=== PATIENT | female | born 1940 | race Hispanic/Latino ===

== ENCOUNTER 2018-09-16 16:16 | Inpatient (IN) | payer MEDICARE ==
--- NOTE | 2018-09-16 16:44 | Cat Scan Report ---
FINAL REPORT EXAM: CT HEAD/BRAIN WO CON HISTORY: neuro deficits <6hrs or sx present upon awakening COMPARISON: None available. TECHNIQUE: Axial images obtained skull base through vertex. FINDINGS: No acute intracranial hemorrhage, midline shift or pathologic extra axial fluid collection. Mild paying teller lawanda small vessel ischemic disease. Ventricular system within normal limits. Otherwise, pierre-white dif ferentiation preserved. Chronic appearing lacunar infarcts bilateral basal ganglia and left caudate h ead. Calvarium grossly intact. No hyperdense MCA sign. No loss of the subinsular cortex. Moderate kelsie cified plaque along the carotid arteries. Ocular globes are grossly unremarkable. Mild mucosal thicke valentino of the left maxillary sinus. Mastoid air cells are clear. IMPRESSION: No grossly acute intracranial abnormality. Mild chronic small vessel ischemic disease. Chronic appear ing lacunar infarcts bilateral basal ganglia and left caudate head. No evidence of acute transcortica l infarct or intracranial hemorrhage by CT at this time. If clinical concern for acute intracranial p rocess remains, MRI would be suggested for further evaluation. [facility] ORS notified Dr. Hinson of results on September 16, 2018 at 1642 hours EST.
--- NOTE | 2018-09-16 16:54 | Emergency Department Report ---
HPI - General Chief Complaint: Neuro Symptoms/Deficit - HPI HPI: Room 3 The patient is 78-year-old female presenting with a chief complaint of slurred speech. Family states the patient last known well time was this morning at 08:30. The spouse states he went to a meeting to return home at 14:00 to find the patient had slurred speech. Patient reportedly fell 3 times today as well. Per the spouse the patient's speech has improved. Location: [employer] Duration: [See above] Quality: Slurred speech Severity: Moderate Modifying factors: [see above] Context: [see above] Mode of transportation: [not driving] ED Past Medical Hx - Past Medical History Previous Medical History?: No ED Review of Systems ROS: Stated complaint: POSSIBLE CVA Other details as noted in HPI Physical Exam - Physical Exam Physical Exam: NIHSS= [] LOC a. Alert= 0 Not alert but arousable to minor stimuli=1 Not alert requires repeated or strong stimuli to move= 2 Responds only reflex motor or unresponsive=3 b. asks month and age (+)answers both correctly= 0 answers one correctly= 1 answers neither correctly= 2 Best Gaze normal= 0 abnormal in one or both but forced deviation or total paresis absent= 1 forced deviation or total gaze paresis= 2 Visual no visual loss= 0 partial hemianopia= 1 complete hemianopia= 2 bilateral hemianopia= 3 Facial Palsy normal= 0 (+)minor paralysis= 1 partial paralysis= 2 complete paralysis= 3 Motor Arm no drift= 0 (+)drift before 10 secs but doesnt hit bed= 1 some effort against gravity= 2 no effort against gravity= 3 no movement= 4 Motor leg no drift= 0 (+)drift before 5 secs but doesnt hit bed= 1 drifts to bed before 5 secs= 2 no effort against gravity= 3 no movement= 4 Limb ataxia absent=0 present in one limb= 1 present in two limbs= 2 Sensory normal= 0 mild sensory loss= 1 severe (unaware of being touched)= 2 Best language mild/some loss of fluency= 1 severe= 2 mute= 3 Dysarthria normal= 0 slurs some words= 1 severe/unintelligible= 2 Extinction and Inattention no abnormality= 0 visual, tactile, auditory or personal inattention= 1 profound (doesnt recognize own hand or orients to only one side= 2 ED Course - Consultations Consultation #1: 09/16/18 16:50 Tele-neurology paged 09/16/18 17:[address] Juarez- recommends changing aspirin to Plavix 75 daily, starting Lipitor 40 mg daily and typical stroke workup. ED Medical Decision Making - Lab Data Result diagrams: 09/16/18 17:07 09/16/18 17:07 Laboratory Tests 09/16/18 09/16/18 09/16/18 17:07 17:07 17:07 WBC 7.9 RBC 4.99 Hgb 15.0 H Hct 44.8 H MCV 90 MCH 30 MCHC 34 RDW 13.9 Plt Count 221 Lymph % (Auto) 12.6 L [place] % (Auto) 5.5 Eos % (Auto) 1.8 Baso % (Auto) 0.9 Lymph # 1.0 L [place] # 0.4 Eos # 0.1 Baso # 0.1 Seg Neutrophils % 79.2 H Seg Neutrophils # 6.3 PT 12.9 INR 0.93 Thrombin Time Sodium 141 Potassium 4.1 Chloride 102.4 Carbon Dioxide 27 Anion Gap 16 BUN 13 Creatinine 0.6 L Estimated GFR > 60 BUN/Creatinine Ratio 22 Glucose 112 H POC Glucose Calcium 9.3 Troponin T < 0.010 09/16/18 09/16/18 17:07 17:23 WBC RBC Hgb Hct MCV MCH MCHC RDW Plt Count Lymph % (Auto) [place] % (Auto) Eos % (Auto) Baso % (Auto) Lymph # [place] # Eos # Baso # Seg Neutrophils % Seg Neutrophils # PT INR Thrombin Time 16.3 Sodium Potassium Chloride Carbon Dioxide Anion Gap BUN Creatinine Estimated GFR BUN/Creatinine Ratio Glucose POC Glucose 101 Calcium Troponin T - EKG Data -: EKG Interpreted by Me EKG shows normal: sinus rhythm Rate: normal - EKG Data When compared to previous EKG there are: previous EKG unavailable Interpretation: other (no ischemic changes seen) - Radiology Data Radiology results: report reviewed (CT head), image reviewed (CT head) [facility] [address] [place] [address] Cat Scan Report Signed Patient: IHSAN YANG MR#: [id number] : 1940 Acct:[id number] Age/Sex: 78 / F ADM Date: 09/16/18 Loc: ED Attending Dr: Ordering Physician: REBECCA ESPARZA MD Date of Service: 09/16/18 Procedure(s): CT head/brain wo con Accession Number(s): [id number] cc: REBECCA ESPARZA MD FINAL REPORT EXAM: CT HEAD/BRAIN WO CON HISTORY: neuro deficits lt; 6hrs or sx present upon awakening COMPARISON: None available. TECHNIQUE: Axial images obtained skull base through vertex. FINDINGS: No acute intracranial hemorrhage, midline shift or pathologic extra axial fluid collection. Mild chronic small vessel ischemic disease. Ventricular system within normal limits. Otherwise, pierre-white differentiation preserved. Chronic appearing lacunar infarcts bilateral basal ganglia and left caudate head. Calvarium grossly intact. No hyperdense MCA sign. No loss of the subinsular cortex. Moderate calcified plaque along the carotid arteries. Ocular globes are grossly unremarkable. Mild mucosal thickening of the left maxillary sinus. Mastoid air cells are clear. IMPRESSION: No grossly acute intracranial abnormality. Mild chronic small vessel ischemic disease. Chronic appearing lacunar infarcts bilateral basal ganglia and left caudate head. No evidence of acute transcortical infarct or intracranial hemorrhage by CT at this time. If clinical concern for acute intracranial process remains, MRI would be suggested for further evaluation. [facility] ORS notified Dr. Esparza of results on September 16, 2018 at 1642 hours EST. Transcribed By: LMA Dictated By: YINKA NORMAN MD Electronically Authenticated By: YINKA NORMAN MD Signed Date/Time: 09/16/181643 DD/ 44 TD/TT: 09/16/181644 - Differential Diagnosis CVA Critical care attestation.: If time is entered above; I have spent that time in minutes in the direct care of this critically ill patient, excluding procedure time. ED Disposition Clinical Impression: CVA (cerebral vascular accident) Disposition: DC-09 OP ADMIT IP TO THIS HOSP Is pt being admited?: Yes Does the pt Need Aspirin: Yes Condition: Fair Time of Disposition: 18:07 (hospitalist paged (Dr Ray))
[2018-09-16] MEDS ORDERED: PLAVIX PO ONE (17:22)
[2018-09-16 17:32] LABS: Basophils # (Auto) 0.1 K/mm3 (0.0-0.1); Basophils % (Auto) 0.9 % (0.0-1.8); Eosinophils # (Auto) 0.1 K/mm3 (0.0-0.4); Eosinophils % (Auto) 1.8 % (0.0-4.3); Hematocrit 44.8 % (30.3-42.9); Lymphocytes % (Auto) 12.6 % (13.4-35.0); Mean Corpuscular HGB Conc 34 % (30-34); Mean Corpuscular Volume 90 fl (79-97); Monocytes # (Auto) 0.4 K/mm3 (0.0-0.8); Monocytes % (Auto) 5.5 % (0.0-7.3); Platelet Count 221 K/mm3 (140-440); Red Blood Count 4.99 M/mm3 (3.65-5.03); Red Cell Distribution Width 13.9 % (13.2-15.2)
[2018-09-16 17:48] LABS: INR 0.93 (0.87-1.13)
[2018-09-16 17:50] LABS: BUN/Creatinine Ratio 22; Blood Urea Nitrogen 13 mg/dL (7-17); Calcium 9.3 mg/dL (8.4-10.2); Hemolysis Index 4
[2018-09-16] MEDS ORDERED: ASPIRIN PO ONE (18:08)
[2018-09-16 18:21] LABS: Partial Thromboplastin Time 40.3 Sec. (24.2-36.6)
[2018-09-16] MEDS ORDERED: ZOFRAN IV PRN (18:58)
[2018-09-16] MEDS ORDERED: SODIUM CHLORIDE FLUSH SYRINGE 10 ML IV PRN ×2 (18:58→19:02)
[2018-09-16] MEDS: TYLENOL PO PRN (23:24)
[2018-09-17] MEDS: TYLENOL PO PRN ×2 (04:48→17:39)
--- NOTE | 2018-09-17 05:04 | History and Physical Report ---
History of Present Illness Date of examination: 09/16/18 Date of admission: 09/16/18 18:58 Chief complaint: Slurred speech and L sided weakness since AM History of present illness: 78-year-old female presenting with a chief complaint of slurred speech. Family states the patient last known well time was this morning at 08:30. The spouse states he went to a meeting to return home at 14:00 to find the patient had slurred speech and left sided weakness.Tried to walk and fell down 3 times.Slurred speech has improved to a large extent Past History Past Medical History: No medical history Past Surgical History: No surgical history Social history: lives with family, full code Family history: hypertension Medications and Allergies Allergies Allergy/AdvReac Type Severity Reaction Status Date / Time No Known Allergies Allergy Unverified 09/16/18 16:26 Active Meds: Active Medications Acetaminophen (Tylenol) 650 mg PO Q4H PRN PRN Reason: Pain MILD(1-3)/Fever >100.5/AUGUST Last Admin: 09/17/18 04:48 Dose: 650 mg Documented by: Enoxaparin Sodium (Lovenox) 40 mg SUB-Q QDAY@1000 RADHA Hydromorphone HCl (Dilaudid) 0.5 mg IV Q3H PRN PRN Reason: Pain , Severe (7-10) Ondansetron HCl (Zofran) 4 mg IV Q8H PRN PRN Reason: Nausea And Vomiting Sodium Chloride (Sodium Chloride Flush Syringe 10 Ml) 10 ml IV BID RADHA Sodium Chloride (Sodium Chloride Flush Syringe 10 Ml) 10 ml IV PRN PRN PRN Reason: LINE FLUSH Sodium Chloride (Sodium Chloride Flush Syringe 10 Ml) 10 ml IV PRN PRN PRN Reason: LINE FLUSH Review of Systems All systems: negative Neurological: paralysis (L side), change in speech Exam - Constitutional Vitals: Temp Pulse Resp BP Pulse Ox 97.7 F 76 18 133/46 95 09/17/18 04:36 09/17/18 04:36 09/17/18 04:36 09/17/18 04:36 09/17/18 04:36 General appearance: Present: no acute distress, well-nourished - EENT Eyes: Present: PERRL ENT: hearing intact, clear oral mucosa - Neck Neck: Present: supple, normal ROM - Respiratory Respiratory effort: normal Respiratory: bilateral: CTA - Cardiovascular Heart rate: 65 Rhythm: regular Heart Sounds: Present: S1 & S2. Absent: rub, click - Extremities Extremities: pulses symmetrical, No edema Peripheral Pulses: within normal limits - Abdominal General gastrointestinal: Present: soft, non-tender, non-distended, normal bowel sounds Female genitourinary: Present: normal - Rectal Rectal Exam: deferred - Integumentary Integumentary: Present: clear, warm, dry - Musculoskeletal Musculoskeletal: left sided weakness - Psychiatric Psychiatric: appropriate mood/affect, intact judgment & insight - Neurologic Neurologic: CNII-XII intact (L Facial nerve palsy ), focal deficits (LUE and LLE weakness.3/5 power in both upper and lower extremities Reflexes brisk) - Allied Health Allied health notes reviewed: nursing, case management Results - Labs CBC & Chem 7: 09/16/18 17:07 09/16/18 17:07 Labs: Laboratory Last Values WBC 7.9 K/mm3 (4.5-11.0) 09/16/18 17:07 RBC 4.99 M/mm3 (3.65-5.03) 09/16/18 17:07 Hgb 15.0 gm/dl (10.1-14.3) H 09/16/18 17:07 Hct 44.8 % (30.3-42.9) H 09/16/18 17:07 MCV 90 fl (79-97) 09/16/18 17:07 MCH 30 pg (28-32) 09/16/18 17:07 MCHC 34 % (30-34) 09/16/18 17:07 RDW 13.9 % (13.2-15.2) 09/16/18 17:07 Plt Count 221 K/mm3 (140-440) 09/16/18 17:07 Lymph % (Auto) 12.6 % (13.4-35.0) L 09/16/18 17:07 [place] % (Auto) 5.5 % (0.0-7.3) 09/16/18 17:07 Eos % (Auto) 1.8 % (0.0-4.3) 09/16/18 17:07 Baso % (Auto) 0.9 % (0.0-1.8) 09/16/18 17:07 Lymph # 1.0 K/mm3 (1.2-5.4) L 09/16/18 17:07 [place] # 0.4 K/mm3 (0.0-0.8) 09/16/18 17:07 Eos # 0.1 K/mm3 (0.0-0.4) 09/16/18 17:07 Baso # 0.1 K/mm3 (0.0-0.1) 09/16/18 17:07 Seg Neutrophils % 79.2 % (40.0-70.0) H 09/16/18 17:07 Seg Neutrophils # 6.3 K/mm3 (1.8-7.7) 09/16/18 17:07 PT 12.9 Sec. (12.2-14.9) 09/16/18 17:07 INR 0.93 (0.87-1.13) 09/16/18 17:07 APTT 40.3 Sec. (24.2-36.6) H 09/16/18 17:07 Thrombin Time 16.3 Sec. (15.1-19.6) 09/16/18 17:07 Sodium 141 mmol/L (137-145) 09/16/18 17:07 Potassium 4.1 mmol/L (3.6-5.0) 09/16/18 17:07 Chloride 102.4 mmol/L (98-107) 09/16/18 17:07 Carbon Dioxide 27 mmol/L (22-30) 09/16/18 17:07 Anion Gap 16 mmol/L 09/16/18 17:07 BUN 13 mg/dL (7-17) 09/16/18 17:07 Creatinine 0.6 mg/dL (0.7-1.2) L 09/16/18 17:07 Estimated GFR > 60 ml/min 09/16/18 17:07 BUN/Creatinine Ratio 22 % 09/16/18 17:07 Glucose 112 mg/dL (65-100) H 09/16/18 17:07 POC Glucose 101 (70-105) 09/16/18 17:23 Hemoglobin A1c 5.3 % (4-6) 09/16/18 19:18 Calcium 9.3 mg/dL (8.4-10.2) 09/16/18 17:07 Troponin T < 0.010 ng/mL (0.00-0.029) 09/16/18 17:07 Short CBC 09/16/18 Range/Units 17:07 WBC 7.9 (4.5-11.0) K/mm3 Hgb 15.0 H (10.1-14.3) gm/dl Hct 44.8 H (30.3-42.9) % Plt Count 221 (140-440) K/mm3 BMP 09/16/18 17:07 Sodium 141 Potassium 4.1 Chloride 102.4 Carbon Dioxide 27 BUN 13 Creatinine 0.6 L Glucose 112 H Calcium 9.3 Cardiac Enzymes 09/16/18 Range/Units 17:07 Troponin T < 0.010 (0.00-0.029) ng/mL - Imaging and Cardiology EKG: report reviewed (NSR 65/min) Imaging and Cardiology: CT Head IMPRESSION: No grossly acute intracranial abnormality. Mild chronic small vessel ischemic disease. Chronic appearing lacunar infarcts bilateral basal ganglia and left caudate head. No evidence of acute transcortical infarct or intracranial hemorrhage by CT at this time. If clinical concern for acute intracranial process remains, MRI would be suggested for further evaluation. [facility] ORS notified Dr. Hinson of results on September 16, 2018 at 1642 hours EST. Assessment and Plan Advance Directives: Yes (Full code) VTE prophylaxis?: Chemical Plan of care discussed with patient/family: Yes - Patient Problems (1) Acute CVA (cerebrovascular accident) Current Visit: Yes Status: Acute Plan to address problem: Outside the window period for TPA Stroke protocol MRI/MRA/CDS/Echo ordered Neuro consult ordered (2) DVT prophylaxis Current Visit: Yes Status: Acute Plan to address problem: On Lovenox and GI prophyulaxis
[2018-09-17 07:50] LABS: Basophils % (Auto) 0.3 % (0.0-1.8); Eosinophils # (Auto) 0.1 K/mm3 (0.0-0.4); Eosinophils % (Auto) 2.1 % (0.0-4.3); Hematocrit 43.4 % (30.3-42.9); Hemoglobin 14.6 gm/dl (10.1-14.3); Lymphocytes # (Auto) 1.3 K/mm3 (1.2-5.4); Lymphocytes % (Auto) 19.3 % (13.4-35.0); Mean Corpuscular HGB Conc 34 % (30-34); Mean Corpuscular Volume 90 fl (79-97); Monocytes # (Auto) 0.5 K/mm3 (0.0-0.8); Monocytes % (Auto) 8.5 % (0.0-7.3); Red Blood Count 4.85 M/mm3 (3.65-5.03); Red Cell Distribution Width 13.9 % (13.2-15.2)
[2018-09-17 07:59] LABS: Alanine Aminotransferase 12 units/L (7-56); Albumin 3.7 g/dL (3.9-5); BUN/Creatinine Ratio 22; Blood Urea Nitrogen 13 mg/dL (7-17); Calcium 8.8 mg/dL (8.4-10.2); Hemolysis Index 8; LDL Cholesterol,Direct 99 mg/dL (50-130)
[2018-09-17 08:02] LABS: Platelet Count 212 K/mm3 (140-440)
--- NOTE | 2018-09-17 08:12 | Progress Note ---
Assessment and Plan Assessment and plan: 78-year-old female patient was admitted through emergency room with slurred speech and left-sided weakness . The patient is not a candidate for TPA, neuro workup is in progress, CT head without contrast no acute abnormalities Chronic changes noted --Acute CVA/TIA; Not a candidate for TPA, antiplatelets and statins Physical therapy, occupational therapy, rehabilitation follow neuro workup MRI/MRA , carotid Doppler , echocardiogram and neurology evaluation if needed --Dyslipidemia; continue statin --Ongoing tobacco use smoking cessation counseling, nicotine patch as needed. --DVT prophylaxis; Lovenox --DC planning. Case management --PTOT Closely monitor the patient and adjust the management as needed Plan of care is reviewed with the patient, her daughter and her nurse History Interval history: Patient seen and examined medical records reviewed Patient complains of generalized weakness More alert and awake Wants to go home, confused at times Vital signs noted Daughter at the bedside Hospitalist Physical - Constitutional Vitals: Temp Pulse Resp BP Pulse Ox 97.7 F 76 18 133/46 95 09/17/18 04:36 09/17/18 04:36 09/17/18 04:36 09/17/18 04:36 09/17/18 04:36 General appearance: Present: no acute distress, well-nourished, other (speech clear) - EENT Eyes: Present: PERRL, EOM intact - Neck Neck: Present: supple, normal ROM - Respiratory Respiratory effort: normal Respiratory: bilateral: diminished, negative: rales, rhonchi, wheezing - Cardiovascular Rhythm: regular Heart Sounds: Present: S1 & S2 - Extremities Extremities: no ischemia, No edema - Abdominal General gastrointestinal: soft, non-tender, non-distended, normal bowel sounds - Integumentary Integumentary: Present: clear, warm - Psychiatric Psychiatric: appropriate mood/affect, cooperative - Neurologic Neurologic: CNII-XII intact, moves all extremities, other ( speech clear) Results - Labs CBC & Chem 7: 09/17/18 07:07 09/17/18 07:07 Labs: Laboratory Last Values WBC 6.5 K/mm3 (4.5-11.0) 09/17/18 07:07 RBC 4.85 M/mm3 (3.65-5.03) 09/17/18 07:07 Hgb 14.6 gm/dl (10.1-14.3) H 09/17/18 07:07 Hct 43.4 % (30.3-42.9) H 09/17/18 07:07 MCV 90 fl (79-97) 09/17/18 07:07 MCH 30 pg (28-32) 09/17/18 07:07 MCHC 34 % (30-34) 09/17/18 07:07 RDW 13.9 % (13.2-15.2) 09/17/18 07:07 Plt Count 212 K/mm3 (140-440) 09/17/18 07:07 Lymph % (Auto) 19.3 % (13.4-35.0) 09/17/18 07:07 [place] % (Auto) 8.5 % (0.0-7.3) H 09/17/18 07:07 Eos % (Auto) 2.1 % (0.0-4.3) 09/17/18 07:07 Baso % (Auto) 0.3 % (0.0-1.8) 09/17/18 07:07 Lymph # 1.3 K/mm3 (1.2-5.4) 09/17/18 07:07 [place] # 0.5 K/mm3 (0.0-0.8) 09/17/18 07:07 Eos # 0.1 K/mm3 (0.0-0.4) 09/17/18 07:07 Baso # 0.0 K/mm3 (0.0-0.1) 09/17/18 07:07 Seg Neutrophils % 69.8 % (40.0-70.0) 09/17/18 07:07 Seg Neutrophils # 4.5 K/mm3 (1.8-7.7) 09/17/18 07:07 PT 12.9 Sec. (12.2-14.9) 09/16/18 17:07 INR 0.93 (0.87-1.13) 09/16/18 17:07 APTT 40.3 Sec. (24.2-36.6) H 09/16/18 17:07 Thrombin Time 16.3 Sec. (15.1-19.6) 09/16/18 17:07 Sodium 142 mmol/L (137-145) 09/17/18 07:07 Potassium 3.8 mmol/L (3.6-5.0) 09/17/18 07:07 Chloride 104.3 mmol/L (98-107) 09/17/18 07:07 Carbon Dioxide 25 mmol/L (22-30) 09/17/18 07:07 Anion Gap 17 mmol/L 09/17/18 07:07 BUN 13 mg/dL (7-17) 09/17/18 07:07 Creatinine 0.6 mg/dL (0.7-1.2) L 09/17/18 07:07 Estimated GFR > 60 ml/min 09/17/18 07:07 BUN/Creatinine Ratio 22 % 09/17/18 07:07 Glucose 96 mg/dL (65-100) 09/17/18 07:07 POC Glucose 101 (70-105) 09/16/18 17:23 Hemoglobin A1c 5.3 % (4-6) 09/16/18 19:18 Calcium 8.8 mg/dL (8.4-10.2) 09/17/18 07:07 Total Bilirubin 1.00 mg/dL (0.1-1.2) 09/17/18 07:07 AST 17 units/L (5-40) 09/17/18 07:07 ALT 12 units/L (7-56) 09/17/18 07:07 Alkaline Phosphatase 73 units/L (35-129) 09/17/18 07:07 Troponin T < 0.010 ng/mL (0.00-0.029) 09/16/18 17:07 Total Protein 6.3 g/dL (6.3-8.2) 09/17/18 07:07 Albumin 3.7 g/dL (3.9-5) L 09/17/18 07:07 Albumin/Globulin Ratio 1.4 % 09/17/18 07:07 Triglycerides 79 mg/dL (2-149) 09/17/18 07:07 Cholesterol 133 mg/dL (50-199) 09/17/18 07:07 LDL Cholesterol Direct 99 mg/dL (50-130) 09/17/18 07:07
[2018-09-17 09:11] LABS: Chol/HDL Ratio 3.32 %; HDL Cholesterol 40 mg/dL (40-59)
[2018-09-17] MEDS ORDERED: LOVENOX SUB-Q SCH (10:00)
[2018-09-17] MEDS: PLAVIX PO SCH ×2 (11:07→17:42)
[2018-09-17] MEDS: DILAUDID IV PRN ×2 (11:07→23:49)
[2018-09-17] MEDS: LOVENOX SUB-Q SCH ×2 (11:07→17:41)
[2018-09-17] MEDS: SODIUM CHLORIDE FLUSH SYRINGE 10 ML IV SCH ×2 (11:08→21:33)
--- NOTE | 2018-09-17 19:05 | Progress Note ---
Subjective Date of service: 09/17/18 Interval history: multiple bilateral lacunar infarcts seen on the CT suspect part is acute plan MRI and further w/u ie ECHO will follow uo thanks reviewed all notes and the ED summary Objective - Vital Sign Vital Signs - 12hr 09/17/18 09/17/18 07:36 17:37 Temperature 97.7 F Pulse Rate 80 71 Respiratory 18 Rate Blood Pressure 125/55 O2 Sat by Pulse 93 Oximetry - Laboratory Findings CBC and BMP: 09/17/18 07:07 09/17/18 07:07 Abnormal Lab Findings: Abnormal Labs 09/16/18 09/16/18 09/16/18 17:07 17:07 17:07 Hgb 15.0 H Hct 44.8 H Lymph % (Auto) 12.6 L [place] % (Auto) Lymph # 1.0 L Seg Neutrophils % 79.2 H APTT 40.3 H Creatinine 0.6 L Glucose 112 H Albumin 09/17/18 09/17/18 07:07 07:07 Hgb 14.6 H Hct 43.4 H Lymph % (Auto) [place] % (Auto) 8.5 H Lymph # Seg Neutrophils % APTT Creatinine 0.6 L Glucose Albumin 3.7 L
--- NOTE | 2018-09-18 10:26 | Progress Note ---
Assessment and Plan Assessment and plan: 78-year-old female patient was admitted through emergency room with slurred speech and left-sided weakness . The patient is not a candidate for TPA, neuro workup is in progress, CT head without contrast no acute abnormalities Chronic changes noted --Acute CVA/TIA; neuro workup in progress Not a candidate for TPA, antiplatelets and statins Physical therapy, occupational therapy, rehabilitation follow neuro workup MRI/MRA , carotid Doppler , echocardiogram and neurology evaluation if needed --Status post fall, hip pain; check xray hip, supportive care --Dyslipidemia; continue statin --Ongoing tobacco use smoking cessation counseling, nicotine patch as needed. --DVT prophylaxis; Lovenox --DC planning. Case management --PTOT Closely monitor the patient and adjust the management as needed Plan of care is reviewed with the patient, her daughter and her nurse History Interval history: Patient Seen and examined medical records reviewed The patient feels slightly better neuro workup is in progress Complaints of hip pain[history of fall] Vital signs reviewed Hospitalist Physical - Constitutional Vitals: Temp Pulse Resp BP Pulse Ox 98.2 F 65 16 148/55 93 09/18/18 07:57 09/18/18 07:57 09/18/18 07:57 09/18/18 07:57 09/18/18 07:57 General appearance: Present: no acute distress, well-nourished - EENT Eyes: Present: PERRL, EOM intact - Neck Neck: Present: supple, normal ROM - Respiratory Respiratory effort: normal Respiratory: bilateral: diminished, negative: rales, rhonchi, wheezing - Cardiovascular Rhythm: regular Heart Sounds: Present: S1 & S2 - Extremities Extremities: no ischemia, No edema - Abdominal General gastrointestinal: soft, non-tender, non-distended, normal bowel sounds - Integumentary Integumentary: Present: clear, warm - Psychiatric Psychiatric: appropriate mood/affect - Neurologic Neurologic: moves all extremities Results - Labs CBC & Chem 7: 09/17/18 07:07 09/17/18 07:07 Labs: Laboratory Last Values WBC 6.5 K/mm3 (4.5-11.0) 09/17/18 07:07 RBC 4.85 M/mm3 (3.65-5.03) 09/17/18 07:07 Hgb 14.6 gm/dl (10.1-14.3) H 09/17/18 07:07 Hct 43.4 % (30.3-42.9) H 09/17/18 07:07 MCV 90 fl (79-97) 09/17/18 07:07 MCH 30 pg (28-32) 09/17/18 07:07 MCHC 34 % (30-34) 09/17/18 07:07 RDW 13.9 % (13.2-15.2) 09/17/18 07:07 Plt Count 212 K/mm3 (140-440) 09/17/18 07:07 Lymph % (Auto) 19.3 % (13.4-35.0) 09/17/18 07:07 [place] % (Auto) 8.5 % (0.0-7.3) H 09/17/18 07:07 Eos % (Auto) 2.1 % (0.0-4.3) 09/17/18 07:07 Baso % (Auto) 0.3 % (0.0-1.8) 09/17/18 07:07 Lymph # 1.3 K/mm3 (1.2-5.4) 09/17/18 07:07 [place] # 0.5 K/mm3 (0.0-0.8) 09/17/18 07:07 Eos # 0.1 K/mm3 (0.0-0.4) 09/17/18 07:07 Baso # 0.0 K/mm3 (0.0-0.1) 09/17/18 07:07 Seg Neutrophils % 69.8 % (40.0-70.0) 09/17/18 07:07 Seg Neutrophils # 4.5 K/mm3 (1.8-7.7) 09/17/18 07:07 PT 12.9 Sec. (12.2-14.9) 09/16/18 17:07 INR 0.93 (0.87-1.13) 09/16/18 17:07 APTT 40.3 Sec. (24.2-36.6) H 09/16/18 17:07 Thrombin Time 16.3 Sec. (15.1-19.6) 09/16/18 17:07 Sodium 142 mmol/L (137-145) 09/17/18 07:07 Potassium 3.8 mmol/L (3.6-5.0) 09/17/18 07:07 Chloride 104.3 mmol/L (98-107) 09/17/18 07:07 Carbon Dioxide 25 mmol/L (22-30) 09/17/18 07:07 Anion Gap 17 mmol/L 09/17/18 07:07 BUN 13 mg/dL (7-17) 09/17/18 07:07 Creatinine 0.6 mg/dL (0.7-1.2) L 09/17/18 07:07 Estimated GFR > 60 ml/min 09/17/18 07:07 BUN/Creatinine Ratio 22 % 09/17/18 07:07 Glucose 96 mg/dL (65-100) 09/17/18 07:07 POC Glucose 101 (70-105) 09/16/18 17:23 Hemoglobin A1c 5.3 % (4-6) 09/16/18 19:18 Calcium 8.8 mg/dL (8.4-10.2) 09/17/18 07:07 Total Bilirubin 1.00 mg/dL (0.1-1.2) 09/17/18 07:07 AST 17 units/L (5-40) 09/17/18 07:07 ALT 12 units/L (7-56) 09/17/18 07:07 Alkaline Phosphatase 73 units/L (35-129) 09/17/18 07:07 Troponin T < 0.010 ng/mL (0.00-0.029) 09/16/18 17:07 Total Protein 6.3 g/dL (6.3-8.2) 09/17/18 07:07 Albumin 3.7 g/dL (3.9-5) L 09/17/18 07:07 Albumin/Globulin Ratio 1.4 % 09/17/18 07:07 Triglycerides 79 mg/dL (2-149) 09/17/18 07:07 Cholesterol 133 mg/dL (50-199) 09/17/18 07:07 LDL Cholesterol Direct 99 mg/dL (50-130) 09/17/18 07:07 HDL Cholesterol 40 mg/dL (40-59) 09/17/18 07:07 Cholesterol/HDL Ratio 3.32 % 09/17/18 07:07
[2018-09-18] MEDS: LOVENOX SUB-Q SCH (10:48)
[2018-09-18] MEDS: PLAVIX PO SCH (10:48)
[2018-09-18] MEDS: SODIUM CHLORIDE FLUSH SYRINGE 10 ML IV SCH ×2 (10:48→21:06)
[2018-09-18] MEDS ORDERED: ATIVAN IV ONE (11:42)
--- NOTE | 2018-09-18 13:43 | Vascular Lab Report ---
FINAL REPORT EXAM: VL CAROTID DUPLEX BILAT HISTORY: stroke TECHNIQUE: Carotid duplex Doppler ultrasound. Grayscale, color flow and spectral waveform images wer e obtained. PRIORS: None. FINDINGS: There is moderate atherosclerotic disease involving carotid arteries. This is most notable in the rig ht carotid bulb. There is no abnormal elevation in flow velocity seen. ICA/CCA velocity ratios are no rmal bilaterally, 1.4 on the right and 0.7 on the left. Vertebral artery flow is antegrade bilaterall y. IMPRESSION: Moderate atherosclerotic plaque bilaterally, right more than left. There is, however, no evidence of a hemodynamically significant stenosis (Less than 50 percent).
[2018-09-18] MEDS: DILAUDID IV PRN (15:22)
--- NOTE | 2018-09-18 17:12 | Progress Note ---
Subjective Date of service: 09/18/18 Interval history: await MRI of brain hx of multipel strokes om Ct but clinical hx is lacking as she was on no meds except the aspirin hx of multiple falls etiology of stroke is being worked up Objective - Vital Sign Vital Signs - 12hr 09/18/18 07:57 Temperature 98.2 F Pulse Rate 65 Respiratory 16 Rate Blood Pressure 148/55 O2 Sat by Pulse 93 Oximetry - Laboratory Findings CBC and BMP: 09/17/18 07:07 09/17/18 07:07 Abnormal Lab Findings: Abnormal Labs 09/16/18 09/16/18 09/16/18 17:07 17:07 17:07 Hgb 15.0 H Hct 44.8 H Lymph % (Auto) 12.6 L [place] % (Auto) Lymph # 1.0 L Seg Neutrophils % 79.2 H APTT 40.3 H Creatinine 0.6 L Glucose 112 H Albumin 09/17/18 09/17/18 07:07 07:07 Hgb 14.6 H Hct 43.4 H Lymph % (Auto) [place] % (Auto) 8.5 H Lymph # Seg Neutrophils % APTT Creatinine 0.6 L Glucose Albumin 3.7 L
--- NOTE | 2018-09-18 17:30 | XRay Report ---
FINAL REPORT EXAM: XR HIP 2-3V LT HISTORY: s/p fall,hip pain TECHNIQUE: AP pelvis radiograph. Frog-leg radiograph of the left hip. PRIORS: None. FINDINGS: No fracture. No dislocation. There is diffuse osteopenia. There is bilateral hip joint space loss with peripheral osteophyte forma tions. No soft tissue abnormality. IMPRESSION: Mild osteoarthritis of the hips.
--- NOTE | 2018-09-19 08:20 | Progress Note ---
Subjective Date of service: 09/19/18 Interval history: I went over the results of hip Xray with daughter no fracture but OA this may account for falls advise PT and short term rehab for the stroke Objective - Vital Sign Vital Signs - 12hr 09/19/18 09/19/18 09/19/18 00:06 03:32 05:00 Temperature 98.1 F 98.2 F Pulse Rate 64 61 61 Respiratory 18 18 Rate Blood Pressure 135/49 138/52 O2 Sat by Pulse 92 93 Oximetry - Laboratory Findings CBC and BMP: 09/17/18 07:07 09/17/18 07:07 Abnormal Lab Findings: Abnormal Labs 09/16/18 09/16/18 09/16/18 17:07 17:07 17:07 Hgb 15.0 H Hct 44.8 H Lymph % (Auto) 12.6 L [place] % (Auto) Lymph # 1.0 L Seg Neutrophils % 79.2 H APTT 40.3 H Creatinine 0.6 L Glucose 112 H Albumin 09/17/18 09/17/18 07:07 07:07 Hgb 14.6 H Hct 43.4 H Lymph % (Auto) [place] % (Auto) 8.5 H Lymph # Seg Neutrophils % APTT Creatinine 0.6 L Glucose Albumin 3.7 L
[2018-09-19] MEDS: LOVENOX SUB-Q SCH (11:06)
[2018-09-19] MEDS: PLAVIX PO SCH (11:06)
[2018-09-19] MEDS: TYLENOL PO PRN (11:08)
[2018-09-19] MEDS ORDERED: ATIVAN IV PRN (11:13)
--- NOTE | 2018-09-19 12:23 | Progress Note ---
Assessment and Plan Assessment and plan: 78-year-old female patient was admitted through emergency room with slurred speech and left-sided weakness . The patient is not a candidate for TPA, neuro workup is in progress, CT head without contrast no acute abnormalities Chronic changes noted --Acute CVA/TIA; neuro workup in progress Not a candidate for TPA, antiplatelets and statins Physical therapy, occupational therapy, rehabilitation follow neuro workup MRI/MRA , carotid Doppler , echocardiogram and neurology evaluation if needed Workup; CT head without contrast; chronic infarcts Carotid Doppler; less than 50% stenosis Echocardiogram; ejection fraction 60-65% MRI brain; limited exam as patient terminated the procedure only Several small foci of diffusion restriction in the white matter of the cerebral hemisphere and right parietal cortex Appears be watershed distribution of the right cerebral hemisphere, chronic white matter changes Hip x-ray; mild osteoarthritis of the hips --Status post fall, hip pain; In no acute changes of osteoarthritis --Dyslipidemia; continue statin --Ongoing tobacco use smoking cessation counseling, nicotine patch as needed. --DVT prophylaxis; Lovenox --DC planning. Case management --PTOT, possible home with home health when medically stable Closely monitor the patient and adjust the management as needed Plan of care is reviewed with the patient, her daughter and her nurse History Interval history: Patient seen and examined medical records reviewed Patient feels slightly better, scheduled for MRI today Patient alert and awake oriented 3 The family reports patient is back to baseline No new events reported by the nursing Vital signs noted Hospitalist Physical - Constitutional Vitals: Temp Pulse Resp BP Pulse Ox 97.3 F L 71 20 148/71 95 09/19/18 08:35 09/19/18 08:35 09/19/18 11:08 09/19/18 08:35 09/19/18 09:23 General appearance: Present: no acute distress, well-nourished - EENT Eyes: Present: PERRL, EOM intact - Neck Neck: Present: supple, normal ROM - Respiratory Respiratory effort: normal Respiratory: bilateral: diminished, negative: rales, rhonchi, wheezing - Cardiovascular Rhythm: regular Heart Sounds: Present: S1 & S2 - Extremities Extremities: no ischemia, No edema - Abdominal General gastrointestinal: soft, non-tender, non-distended, normal bowel sounds - Integumentary Integumentary: Present: clear, warm - Psychiatric Psychiatric: appropriate mood/affect, cooperative - Neurologic Neurologic: CNII-XII intact, moves all extremities Results - Labs CBC & Chem 7: 09/17/18 07:07 09/17/18 07:07 Labs: Laboratory Last Values WBC 6.5 K/mm3 (4.5-11.0) 09/17/18 07:07 RBC 4.85 M/mm3 (3.65-5.03) 09/17/18 07:07 Hgb 14.6 gm/dl (10.1-14.3) H 09/17/18 07:07 Hct 43.4 % (30.3-42.9) H 09/17/18 07:07 MCV 90 fl (79-97) 09/17/18 07:07 MCH 30 pg (28-32) 09/17/18 07:07 MCHC 34 % (30-34) 09/17/18 07:07 RDW 13.9 % (13.2-15.2) 09/17/18 07:07 Plt Count 212 K/mm3 (140-440) 09/17/18 07:07 Lymph % (Auto) 19.3 % (13.4-35.0) 09/17/18 07:07 [place] % (Auto) 8.5 % (0.0-7.3) H 09/17/18 07:07 Eos % (Auto) 2.1 % (0.0-4.3) 09/17/18 07:07 Baso % (Auto) 0.3 % (0.0-1.8) 09/17/18 07:07 Lymph # 1.3 K/mm3 (1.2-5.4) 09/17/18 07:07 [place] # 0.5 K/mm3 (0.0-0.8) 09/17/18 07:07 Eos # 0.1 K/mm3 (0.0-0.4) 09/17/18 07:07 Baso # 0.0 K/mm3 (0.0-0.1) 09/17/18 07:07 Seg Neutrophils % 69.8 % (40.0-70.0) 09/17/18 07:07 Seg Neutrophils # 4.5 K/mm3 (1.8-7.7) 09/17/18 07:07 PT 12.9 Sec. (12.2-14.9) 09/16/18 17:07 INR 0.93 (0.87-1.13) 09/16/18 17:07 APTT 40.3 Sec. (24.2-36.6) H 09/16/18 17:07 Thrombin Time 16.3 Sec. (15.1-19.6) 09/16/18 17:07 Sodium 142 mmol/L (137-145) 09/17/18 07:07 Potassium 3.8 mmol/L (3.6-5.0) 09/17/18 07:07 Chloride 104.3 mmol/L (98-107) 09/17/18 07:07 Carbon Dioxide 25 mmol/L (22-30) 09/17/18 07:07 Anion Gap 17 mmol/L 09/17/18 07:07 BUN 13 mg/dL (7-17) 09/17/18 07:07 Creatinine 0.6 mg/dL (0.7-1.2) L 09/17/18 07:07 Estimated GFR > 60 ml/min 09/17/18 07:07 BUN/Creatinine Ratio 22 % 09/17/18 07:07 Glucose 96 mg/dL (65-100) 09/17/18 07:07 POC Glucose 101 (70-105) 09/16/18 17:23 Hemoglobin A1c 5.3 % (4-6) 09/16/18 19:18 Calcium 8.8 mg/dL (8.4-10.2) 09/17/18 07:07 Total Bilirubin 1.00 mg/dL (0.1-1.2) 09/17/18 07:07 AST 17 units/L (5-40) 09/17/18 07:07 ALT 12 units/L (7-56) 09/17/18 07:07 Alkaline Phosphatase 73 units/L (35-129) 09/17/18 07:07 Troponin T < 0.010 ng/mL (0.00-0.029) 09/16/18 17:07 Total Protein 6.3 g/dL (6.3-8.2) 09/17/18 07:07 Albumin 3.7 g/dL (3.9-5) L 09/17/18 07:07 Albumin/Globulin Ratio 1.4 % 09/17/18 07:07 Triglycerides 79 mg/dL (2-149) 09/17/18 07:07 Cholesterol 133 mg/dL (50-199) 09/17/18 07:07 LDL Cholesterol Direct 99 mg/dL (50-130) 09/17/18 07:07 HDL Cholesterol 40 mg/dL (40-59) 09/17/18 07:07 Cholesterol/HDL Ratio 3.32 % 09/17/18 07:07
--- NOTE | 2018-09-19 15:01 | Magnetic Resonance Report ---
MRI OF THE BRAIN WITHOUT CONTRAST: HISTORY: Stroke PROCEDURE: Axial diffusion, T2, T2 gradient. Sagittal T1. FINDINGS: A modified examination was performed because the patient terminated the procedure early and refused to return to MR. Given the sequences obtained, I feel this examination is adequate. The diffusion sequence demonstrates multiple tiny foci of diffusion restriction within the white matter of the right frontal and parietal lobes. There are a few tiny foci of cortical diffusion restriction in the right parietal lobe as well. This appears to follow the right watershed distribution. No additional areas of diffusion restriction. No evidence for hemorrhage, mass or extra-axial fluid collection. No large chronic infarct. There is mild diffuse cortical volume loss and mild chronic white matter changes. Ventricular size is within normal limits. The basal cisterns are clear. The posterior fossa and contents are within normal limits. IMPRESSION: Limited exam because the patient terminated the procedure early. There are several small foci of diffusion restriction in the white matter of the right cerebral hemisphere and right parietal cortex. This appears to follow the watershed distributions of the right cerebral hemisphere. Volume loss. Chronic white matter changes.
--- NOTE | 2018-09-19 16:09 | Progress Note ---
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 RECOMMEND asa Objective - Vital Sign Vital Signs - 12hr 09/19/18 09/19/18 09/19/18 05:00 08:35 08:53 Temperature 97.3 F L Pulse Rate 61 71 Respiratory 18 Rate Blood Pressure 148/71 O2 Sat by Pulse 96 96 Oximetry 09/19/18 09/19/18 09/19/18 09:23 11:08 11:50 Temperature Pulse Rate 59 L Respiratory 20 Rate Blood Pressure 127/57 O2 Sat by Pulse 95 90 Oximetry - Laboratory Findings CBC and BMP: 09/17/18 07:07 09/17/18 07:07 Abnormal Lab Findings: Abnormal Labs 09/16/18 09/16/18 09/16/18 17:07 17:07 17:07 Hgb 15.0 H Hct 44.8 H Lymph % (Auto) 12.6 L [place] % (Auto) Lymph # 1.0 L Seg Neutrophils % 79.2 H APTT 40.3 H Creatinine 0.6 L Glucose 112 H Albumin 09/17/18 09/17/18 07:07 07:07 Hgb 14.6 H Hct 43.4 H Lymph % (Auto) [place] % (Auto) 8.5 H Lymph # Seg Neutrophils % APTT Creatinine 0.6 L Glucose Albumin 3.7 L
[2018-09-19] MEDS: SODIUM CHLORIDE FLUSH SYRINGE 10 ML IV SCH ×2 (21:09)
[2018-09-20] MEDS: TYLENOL PO PRN (00:58)
--- NOTE | 2018-09-20 09:16 | Progress Note ---
Assessment and Plan Assessment and plan: 78-year-old female patient was admitted through emergency room with slurred speech and left-sided weakness . The patient is not a candidate for TPA, neuro workup is in progress, CT head without contrast no acute abnormalities Chronic changes noted --s/p fall/, Lt ribcage pain: Rib series for any fractures Intensive spirometry, pain medications --Acute TIA; neuro workup in progress Not a candidate for TPA, antiplatelets and statins Physical therapy, occupational therapy, rehabilitation follow neuro workup MRI/MRA , carotid Doppler , echocardiogram and neurology evaluation if needed Neuro Workup negative CVA ruled out. Workup; CT head without contrast; chronic infarcts Carotid Doppler; less than 50% stenosis Echocardiogram; ejection fraction 60-65% MRI brain; limited exam as patient terminated the procedure only Several small foci of diffusion restriction in the white matter of the cerebral hemisphere and right parietal cortex Appears be watershed distribution of the right cerebral hemisphere, chronic white matter changes Hip x-ray; mild osteoarthritis of the hips --Status post fall, hip pain; In no acute changes of osteoarthritis --Dyslipidemia; continue statin --Ongoing tobacco use smoking cessation counseling, nicotine patch as needed. --DVT prophylaxis; Lovenox --DC planning. Case management --PTOT, possible home with home health when medically stable Closely monitor the patient and adjust the management as needed Plan of care is reviewed with the patient, her daughter and her nurse History Interval history: Patient seen and examined medical records reviewed Complaints of some chest wall pain Patient has history of fall Alert awake oriented 3 Vital signs noted Hospitalist Physical - Constitutional Vitals: Temp Pulse Resp BP Pulse Ox 98.0 F 64 16 137/62 92 09/20/18 07:21 09/20/18 07:21 09/20/18 07:21 09/20/18 07:21 09/20/18 07:21 General appearance: Present: no acute distress, well-nourished - EENT Eyes: Present: PERRL, EOM intact - Neck Neck: Present: supple, normal ROM - Respiratory Respiratory effort: normal Respiratory: bilateral: diminished, negative: rales, rhonchi, wheezing - Cardiovascular Rhythm: regular Heart Sounds: Present: S1 & S2 - Extremities Extremities: no ischemia, pulses intact Peripheral Pulses: within normal limits - Abdominal General gastrointestinal: soft, non-tender, non-distended, normal bowel sounds - Integumentary Integumentary: Present: clear, warm - Psychiatric Psychiatric: appropriate mood/affect, cooperative - Neurologic Neurologic: CNII-XII intact, moves all extremities Results - Labs CBC & Chem 7: 09/17/18 07:07 09/17/18 07:07 Labs: Laboratory Last Values WBC 6.5 K/mm3 (4.5-11.0) 09/17/18 07:07 RBC 4.85 M/mm3 (3.65-5.03) 09/17/18 07:07 Hgb 14.6 gm/dl (10.1-14.3) H 09/17/18 07:07 Hct 43.4 % (30.3-42.9) H 09/17/18 07:07 MCV 90 fl (79-97) 09/17/18 07:07 MCH 30 pg (28-32) 09/17/18 07:07 MCHC 34 % (30-34) 09/17/18 07:07 RDW 13.9 % (13.2-15.2) 09/17/18 07:07 Plt Count 212 K/mm3 (140-440) 09/17/18 07:07 Lymph % (Auto) 19.3 % (13.4-35.0) 09/17/18 07:07 [place] % (Auto) 8.5 % (0.0-7.3) H 09/17/18 07:07 Eos % (Auto) 2.1 % (0.0-4.3) 09/17/18 07:07 Baso % (Auto) 0.3 % (0.0-1.8) 09/17/18 07:07 Lymph # 1.3 K/mm3 (1.2-5.4) 09/17/18 07:07 [place] # 0.5 K/mm3 (0.0-0.8) 09/17/18 07:07 Eos # 0.1 K/mm3 (0.0-0.4) 09/17/18 07:07 Baso # 0.0 K/mm3 (0.0-0.1) 09/17/18 07:07 Seg Neutrophils % 69.8 % (40.0-70.0) 09/17/18 07:07 Seg Neutrophils # 4.5 K/mm3 (1.8-7.7) 09/17/18 07:07 PT 12.9 Sec. (12.2-14.9) 09/16/18 17:07 INR 0.93 (0.87-1.13) 09/16/18 17:07 APTT 40.3 Sec. (24.2-36.6) H 09/16/18 17:07 Thrombin Time 16.3 Sec. (15.1-19.6) 09/16/18 17:07 Sodium 142 mmol/L (137-145) 09/17/18 07:07 Potassium 3.8 mmol/L (3.6-5.0) 09/17/18 07:07 Chloride 104.3 mmol/L (98-107) 09/17/18 07:07 Carbon Dioxide 25 mmol/L (22-30) 09/17/18 07:07 Anion Gap 17 mmol/L 09/17/18 07:07 BUN 13 mg/dL (7-17) 09/17/18 07:07 Creatinine 0.6 mg/dL (0.7-1.2) L 09/17/18 07:07 Estimated GFR > 60 ml/min 09/17/18 07:07 BUN/Creatinine Ratio 22 % 09/17/18 07:07 Glucose 96 mg/dL (65-100) 09/17/18 07:07 POC Glucose 101 (70-105) 09/16/18 17:23 Hemoglobin A1c 5.3 % (4-6) 09/16/18 19:18 Calcium 8.8 mg/dL (8.4-10.2) 09/17/18 07:07 Total Bilirubin 1.00 mg/dL (0.1-1.2) 09/17/18 07:07 AST 17 units/L (5-40) 09/17/18 07:07 ALT 12 units/L (7-56) 09/17/18 07:07 Alkaline Phosphatase 73 units/L (35-129) 09/17/18 07:07 Troponin T < 0.010 ng/mL (0.00-0.029) 09/16/18 17:07 Total Protein 6.3 g/dL (6.3-8.2) 09/17/18 07:07 Albumin 3.7 g/dL (3.9-5) L 09/17/18 07:07 Albumin/Globulin Ratio 1.4 % 09/17/18 07:07 Triglycerides 79 mg/dL (2-149) 09/17/18 07:07 Cholesterol 133 mg/dL (50-199) 09/17/18 07:07 LDL Cholesterol Direct 99 mg/dL (50-130) 09/17/18 07:07 HDL Cholesterol 40 mg/dL (40-59) 09/17/18 07:07 Cholesterol/HDL Ratio 3.32 % 09/17/18 07:07
[2018-09-20] MEDS: PLAVIX PO SCH (10:02)
[2018-09-20] MEDS: LOVENOX SUB-Q SCH (10:03)
[2018-09-20] MEDS: SODIUM CHLORIDE FLUSH SYRINGE 10 ML IV SCH ×2 (10:03→22:50)
--- NOTE | 2018-09-21 09:13 | XRay Report ---
BILATERAL RIBS: History: Fall, left rib cage pain. Routine views of the rib cage demonstrate mild osteopenia with no significant contour abnormalities, fractures or destructive lesions. PA view of the chest demonstrates no underlying cardiopulmonary abnormalities, fluid or pneumothorax. IMPRESSION: No displaced rib deformity is appreciated.
--- NOTE | 2018-09-21 10:21 | Discharge Summary ---
Providers - Providers Date of Admission: 09/16/18 18:58 Date of discharge: 09/21/18 Attending physician: HEIDI GARDINER 09/16/18 18:58 Consult to Physician [CONS] Routine Comment: Consulting Provider: ANA LYNCH Physician Instructions: Reason For Exam: cva 09/16/18 19:02 Occupational Therapy Evaluate and Treat [CONS] Routine Comment: Reason For Exam: Neuro deficits Physical Therapy Evaluation and Treat [CONS] Routine Comment: Reason For Exam: Neuro deficits Primary care physician: FRANKY BAEZ Hospitalization Reason for admission: Lt sided weakness and slurring speech Condition: Fair Pertinent studies: Workup; CT head without contrast; chronic infarcts Carotid Doppler; less than 50% stenosis Echocardiogram; ejection fraction 60-65% MRI brain; limited exam as patient terminated the procedure only Several small foci of diffusion restriction in the white matter of the cerebral hemisphere and right parietal cortex Appears be watershed distribution of the right cerebral hemisphere, chronic white matter changes Hip x-ray; mild osteoarthritis of the hips Hospital course: 78-year-old female presenting with a chief complaint of slurred speech. Family states the patient last known well time was this morning at 08:30. The spouse states he went to a meeting to return home at 14:00 to find the patient had slurred speech and left sided weakness.Tried to walk and fell down 3 times.Slurred speech has improved to a large extent. Patient not a candidate for TPA or theombectomy., Patient was admitted ,had extensive neuro workup, Received PT/OT/Rehab, workup is negative and acute CVA ruled out Patient had TIA. Today pt is comfortable,no new complaints,vital signs stable, Physical exam is unremarkable. Discharge Diagnosis: --Acute TIA; neuro workup in progress Not a candidate for TPA, antiplatelets and statins PT/OT/ rehabilitation, Neuro Workup negative CVA ruled out. Workup; CT head without contrast; chronic infarcts Carotid Doppler; less than 50% stenosis Echocardiogram; ejection fraction 60-65% MRI brain; limited exam as patient terminated the procedure only Several small foci of diffusion restriction in the white matter of the cerebral hemisphere and right parietal cortex Appears be watershed distribution of the right cerebral hemisphere, chronic white matter changes Hip x-ray; mild osteoarthritis of the hips --Status post fall, hip pain; In no acute changes of osteoarthritis --Dyslipidemia; continue statin --Ongoing tobacco use smoking cessation counseling, nicotine patch as needed. --DVT prophylaxis; Lovenox --DC planning. Case management --PTOT, possible home with home health when medically stable Stable at discharge Disposition: [id number] HOME [facility] Time spent for discharge: 32 min Core Measure Documentation - Palliative Care Palliative Care/ Comfort Measures: Not Applicable - Core Measures Any of the following diagnoses?: none Exam - Constitutional Vitals: Temp Pulse Resp BP Pulse Ox 97.9 F 57 L 18 120/39 93 09/21/18 07:33 09/21/18 07:33 09/21/18 07:33 09/21/18 07:33 09/21/18 07:33 General appearance: Present: no acute distress, well-nourished - EENT Eyes: Present: PERRL, EOM intact - Neck Neck: Present: supple, normal ROM - Respiratory Respiratory effort: normal Respiratory: bilateral: diminished, negative: rales, rhonchi, wheezing - Cardiovascular Rhythm: regular Heart Sounds: Present: S1 & S2 - Extremities Extremities: no ischemia, No edema - Abdominal General gastrointestinal: Present: soft, non-tender, non-distended, normal bowel sounds - Integumentary Integumentary: Present: clear, warm - Musculoskeletal Musculoskeletal: strength equal bilaterally - Psychiatric Psychiatric: appropriate mood/affect, cooperative - Neurologic Neurologic: CNII-XII intact, moves all extremities Plan Activity: advance as tolerated, fall precautions Diet: regular Special Instructions: physical therapy Additional Instructions: Incentive spirometry. Fall precautions. Smoking cessation Follow up with: PRIMARY CARE, [Referring] - 7 Days Prescriptions: Aspirin EC [Aspirin Enteric Coated TAB] 81 mg PO QDAY #30 tablet. Famotidine [Pepcid] 20 mg PO BID #20 tablet Nicotine [Habitrol] 21 mg TD DAILY #30 patch
[2018-09-21] MEDS: PLAVIX PO SCH (10:57)
[2018-09-21] MEDS: LOVENOX SUB-Q SCH (10:57)
[2018-09-21] MEDS: SODIUM CHLORIDE FLUSH SYRINGE 10 ML IV SCH (10:58)
[2018-09-21 12:27] VITALS: BP 138/94
== END 2018-09-21 12:50 | disposition home health service (06) | DRG 69 ==
LOC: ED 16:16 → 4A 18:58
PROVIDERS: ADMIT Internal Medicine; ATTEND Internal Medicine
DX: G45.9 Transient cerebral ischemic attack, unspecified (principal); G81.94 Hemiplegia, unspecified affecting left nondominant side; E78.5 Hyperlipidemia, unspecified; F17.200 Nicotine dependence, unspecified, uncomplicated; Z71.6 Tobacco abuse counseling; Z82.49 Family history of ischemic heart disease and other diseases of the circulatory system
CPT/HCPCS: 36415; 70450; 70551; 71110; 80048; 80053; 80061; 82962; 83036; 84484; 85025; 85610; 85670; 85730; 93005; 93010; 93306; 93880; G0378; A9270-GY; J1170; J1650; J2060